=== PATIENT | female | born 1990 | race Caucasian/White ===

== ENCOUNTER 2019-05-06 18:05 | Emergency (ER) | payer OTHER ==
[2019-05-06] MEDS ORDERED: diPHENhydraMINE IV* 50 MG/ML 1 ml VIAL (BENADRYL) IV ONE (18:07)
[2019-05-06] MEDS ORDERED: Famotidine IV* 10 MG/ML 2 ML (20 mg) IV SLOW PU ONE (18:07)
[2019-05-06] MEDS ORDERED: methylPREDNISolone 125 MG* 2 ML VIAL IV ONE (18:07)
[2019-05-06] MEDS ORDERED: NS 0.9% 1000 ML** 1,000 ML IV ONE (18:07)
--- NOTE | 2019-05-06 18:46 | UC ---
Allergic Reaction HPI - HPI Summary HPI Summary: 28-year-old female comes in with a chief complaint of a bee sting to the right upper arm and her right arm being numb. 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 Patient did not have her epinephrine pen so she did not take it. Denies any shortness of breath or any difficulty swallowing or breathing. She does have some swelling at the site of the sting on the upper inner right arm. - History of Current Complaint Chief Complaint: UCAllergicReaction Stated Complaint: POSSIBLE ALLERGIC REACTION Time Seen by Provider: 05/06/19 18:06 Hx Last Menstrual Period: 04/07/19 Pain Intensity: 9 - Allergies/Home Medications Allergies/Adverse Reactions: Allergies Allergy/AdvReac Type Severity Reaction Status Date / Time amoxicillin Allergy Intermediate Hives Verified 05/06/19 18:45 cephalexin Allergy Intermediate Hives Verified 05/06/19 18:45 erythromycin base Allergy Intermediate Hives Verified 05/06/19 18:45 latex Allergy Intermediate Hives Verified 05/06/19 18:45 Penicillins Allergy Intermediate Hives Verified 05/06/19 18:45 sulfamethoxazole Allergy Intermediate Nausea Verified 05/06/19 18:45 [From Bactrim] trimethoprim [From Bactrim] Allergy Intermediate Nausea Verified 05/06/19 18:45 Home Medications: Home Medications Aspirin TAB* [Aspirin 325 MG TAB*] 325 mg PO BID 05/06/19 [History Confirmed 09/14] QUEtiapine TAB* [Seroquel 25 MG TAB*] 50 mg PO DAILY 05/06/19 [History Confirmed 05/06/19] PMH/Surg Hx/FS Hx/Imm Hx Previously Healthy: Yes - Surgical History Surgical History: Yes Surgery Procedure, Year, and Place: palate, facial cartilage, thyroid nodule removed. - Family History Known Family History: Positive: Non-Contributory Family History: no know cardio-vascular issues in family lineage - Social History Alcohol Use: Rare Substance Use Type: None Smoking Status (MU): Heavy Every Day Tobacco Smoker Type: Cigarettes Amount Used/How Often: 1 ppd Have You Smoked in the Last Year: Yes Household Exposure Type: Cigarettes Review of Systems All Other Systems Reviewed And Are Negative: Yes Constitutional: Positive: Negative Skin: Positive: Other - SEE HPI Eyes: Positive: Negative ENT: Positive: Negative Respiratory: Positive: Negative Cardiovascular: Positive: Negative Gastrointestinal: Positive: Negative Motor: Positive: Negative Neurovascular: Positive: Other - SEE HPI Musculoskeletal: Positive: Negative Neurological: Positive: Other - SEE HPI Psychological: Positive: Negative Is Patient Immunocompromised?: No Physical Exam Triage Information Reviewed: Yes Appearance: Well-Appearing, No Pain Distress, Well-Nourished, Other: - ANXIOUS Vital Signs: Initial Vital Signs Temp 98.5 F 05/06/19 18:22 Pulse 79 05/06/19 18:22 Resp 20 05/06/19 18:22 BP 93/58 05/06/19 18:22 Pulse Ox 100 05/06/19 18:22 Vital Signs Reviewed: Yes Eye Exam: Normal Eyes: Positive: Conjunctiva Clear ENT: Positive: Pharynx normal Neck: Positive: Supple Respiratory: Positive: Lungs clear, Normal breath sounds, No respiratory distress Cardiovascular: Positive: RRR Musculoskeletal: Positive: Strength Intact, ROM Intact Neurological: Positive: Alert, Muscle Tone Normal Psychological Exam: Normal Psychological: Positive: Normal Response To Family, Age Appropriate Behavior Skin: Positive: Other - 2 cm area of swelling right upper extremity with some erythema on the upper inner arm. No hives noted otherwise. Allergic Reaction Course/Dx - Course Course Of Treatment: Patient was given Benadryl 50 mg IV Pepcid 40 mg IV and cimetidine 125 mg IV and she feels improved. - Differential Dx/Diagnosis Provider Diagnosis: Allergic reaction Discharge - Sign-Out/Discharge Documenting (check all that apply): Patient Departure All imaging exams completed and their final reports reviewed: No Studies - Discharge Plan Condition: Stable Disposition: HOME Prescriptions: Famotidine TAB* [Pepcid 20 MG TAB*] 20 mg PO BID PRN #8 tab PRN Reason: Allergy Symptoms predniSONE TAB* [Deltasone 20 MG TAB*] 40 mg PO DAILY PRN #8 tab PRN Reason: Allergy Symptoms Patient Education Materials: General Allergic Reaction (ED) Referrals: Nova Geronimo MD [Primary Care Provider] - Additional Instructions: FOLLOW UP WITH YOUR DOCTOR IF NOT COMPLETELY IMPROVED. GET REEVALUATED SOONER IF WORSE OR ANY QUESTIONS OR CONCERNS. TAKE BENADRYL 50MG EVERY 6 HOURS NEEDED. TAKE PEPCID 20MG TWICE A DAY NEEDED. TAKE THE PREDNISONE DIRECTED NEEDED. - Billing Disposition and Condition Condition: STABLE Disposition: Home
[2019-05-06 19:49] VITALS: BP 101/58
== END 2019-05-06 19:28 | disposition home or self-care (01) ==
LOC: UCCORT 18:05
DX: T63.441A Toxic effect of venom of bees, accidental (unintentional), initial encounter (principal); M79.89 Other specified soft tissue disorders; T78.49XA Other allergy, initial encounter; Y92.9 Unspecified place or not applicable; W57.XXXA Bitten or stung by nonvenomous insect and other nonvenomous arthropods, initial encounter; F17.210 Nicotine dependence, cigarettes, uncomplicated
CPT/HCPCS: 96361; 96374; 96375; 99212; G0463; J1200; J2930